=== PATIENT | female | born 1960 | race Caucasian/White ===

== ENCOUNTER 2023-07-03 05:48 | Inpatient (IN) ==
[2023-07-03] MEDS ORDERED: Lactated Ringers 1000 ml BAG 1,000 ML IV SCH (06:00)
[2023-07-03] MEDS ORDERED: Buffered Lidocaine 1% SYRIN 1 ml INTRADERM ONE (06:00)
[2023-07-03] MEDS ORDERED: Famotidine IV 10 MG/ML 2 ml VIAL (20 mg) IV ONE (06:00)
[2023-07-03] MEDS ORDERED: Bupivacaine 0.5% PF 10 ML SDV VIAL INJ ONE (06:47)
[2023-07-03] MEDS ORDERED: Phenylephrine IV 10 MG/ML 1 ml VIAL ONE (06:47)
[2023-07-03] MEDS ORDERED: Lidocaine 2% PF 5 ML VIAL ONE (06:47)
[2023-07-03] MEDS ORDERED: Midazolam 2 mg/2 ml VIAL 1 mg/ml 2 ml VIAL (2 mg) ONE (06:47)
[2023-07-03] MEDS ORDERED: fentaNYL 100 mcg/2 ml 50 MCG/ML VIAL ONE (06:47)
[2023-07-03] MEDS ORDERED: Propofol 10 MG/ML 20 ML BTL ONE ×2 (06:47→11:17)
[2023-07-03 06:55] LABS: Rapid COVID-19 Molecular Undetected (Undetected)
[2023-07-03] MEDS ORDERED: ROPIVACAINE 5 MG/ML 30 ML BTL (0.5%) ONE (06:55)
[2023-07-03] MEDS ORDERED: Famotidine IV 10 MG/ML 2 ml VIAL (20 mg) ONE (07:13)
[2023-07-03] MEDS ORDERED: ceFAZolin 2 GM in NS PREMIX 2 GM/100 ML BAG IVPB ONE (07:13)
[2023-07-03] MEDS ORDERED: Tranexamic Acid 1 GM/100ML BAG 2,000 MG/200 ML BAG IV ONE (07:13)
[2023-07-03] MEDS ORDERED: Ropivacaine 5 MG/ML 20 ML VIAL 0.5% (100 MG) ONE (08:34)
[2023-07-03] MEDS ORDERED: Lidocaine 1% MPF 5 ML VIAL ONE (08:34)
[2023-07-03] MEDS ORDERED: Dexamethasone IV 4 MG/ML VIAL 1 ml VIAL ONE ×2 (09:25→09:35)
[2023-07-03] MEDS ORDERED: Ondansetron 4 mg VIAL 2 MG/ML 2 ml VIAL ONE ×2 (09:25→09:35)
[2023-07-03] MEDS ORDERED: Acetaminophen IV 1 GM/100ML 1,000 MG/100 ML BAG IV ONE (09:35)
[2023-07-03] MEDS ORDERED: Naloxone 0.4 mg VIAL 0.4 mg/ml 1 ml VIAL IV PRN ×2 (09:46→14:12)
[2023-07-03] MEDS ORDERED: fentaNYL 100 mcg/2 ml 50 MCG/ML VIAL IV PRN ×2 (09:46→14:12)
[2023-07-03] MEDS ORDERED: Ondansetron 4 mg VIAL 2 MG/ML 2 ml VIAL IV PRN ×3 (09:46→14:12)
[2023-07-03] MEDS ORDERED: Morphine 2 MG/ML SYRINGE IV PRN (09:57)
[2023-07-03] MEDS ORDERED: Magnesium Hydroxide LIQ 30 ML UDC PO PRN (09:57)
[2023-07-03] MEDS ORDERED: Ondansetron ODT 4 mg TAB 4 MG TAB PO PRN (09:57)
[2023-07-03] MEDS ORDERED: Lactulose 30 ml UDC PO PRN (09:57)
[2023-07-03] MEDS: Lactated Ringers 1000 ml BAG 1,000 ML IV SCH (13:50)
[2023-07-03] MEDS: ceFAZolin 1 GM ADVAN 1 GM in NS 0.9% 50 ML 50 ML IVPB SCH ×2 (15:49→22:23)
[2023-07-03] MEDS: Magnesium Hydroxide LIQ 30 ML UDC PO SCH (21:37)
[2023-07-04] MEDS: Lactated Ringers 1000 ml BAG 1,000 ML IV SCH (00:24)
[2023-07-04 06:10] LABS: Hematocrit 30.1 % (35-45); Hemoglobin 10.5 g/dL (11.5-14.3); Mean Platelet Volume 9.9 fL (7.5-11.2); Platelet Count 165 10^3/uL (150-450)
[2023-07-04 06:41] LABS: Calcium 8.9 mg/dL (8.6-10.3); Creatinine, Serum 0.81 mg/dL (0.51-0.95); Potassium 4.5 mmol/L (3.5-5.0)
[2023-07-04] MEDS ORDERED: Vitamin THERAPEUTIC TAB PO SCH (09:00)
[2023-07-04] MEDS: ceFAZolin 1 GM ADVAN 1 GM in NS 0.9% 50 ML 50 ML IVPB SCH (09:06)
[2023-07-04] MEDS: Magnesium Hydroxide LIQ 30 ML UDC PO SCH (10:21)
[2023-07-04 14:38] VITALS: BP 142/65
== END 2023-07-04 15:05 | disposition home or self-care (01) | DRG 302 ==
LOC: INTOOBSV 05:48 → AA 05:48 → SSU 13:20
PROVIDERS: ADMIT Orthopaedic Surgery Adult Reconstructive Orthopaedic Surgery; ATTEND Orthopaedic Surgery Adult Reconstructive Orthopaedic Surgery